=== PATIENT | female | born 1985 | race Caucasian/White ===

== ENCOUNTER 2019-02-24 09:33 | Emergency (ER) | payer SELFPAY ==
[2019-02-24] MEDS ORDERED: NA CHLORIDE 0.9% 1,000 ML ONE (10:26)
[2019-02-24] MEDS ORDERED: ONDANSETRON 4 MG/2 ML VIAL ONE ×2 (10:26→12:26)
[2019-02-24 10:47] LABS: Basophils % 0.2 % (0-1.3); Hematocrit 44.9 % (36.0-45.0); Lymphocytes % 12.7 % (15.3-44.8); RBC Red Blood Cell Count 5.03 M/uL (3.86-4.86)
[2019-02-24 11:01] LABS: Albumin 4.1 g/dL (3.4-5.0); Bilirubin Direct 0.2 mg/dL (0-0.2); Bilirubin Total 1.1 mg/dL (0.2-1.0); Potassium 3.5 mmol/L (3.5-5.1); Protein, Total 7.5 g/dL (6.4-8.2)
[2019-02-24] MEDS ORDERED: METOCLOPRAMIDE 10 MG/2mL INJ ONE (12:00)
[2019-02-24 12:52] LABS: Urine Blood NEGATIVE (NEG); Urine Glucose NEGATIVE (NEG); Urine Protein 2+ (NEG); Urine pH 8.5 (5.0-7.0)
--- NOTE | 2019-02-24 13:07 | RAD REPORT ---
EXAM DESCRIPTION: CTAbdomen Pelvis W Contrast - 02/24/2019 12:57 pm CLINICAL HISTORY: Abdominal pain. ABD PAIN COMPARISON: CT ABD PELVIS W CONTRAST dated 12/21/2014 TECHNIQUE: Biphasic CT imaging of the abdomen and pelvis was performed with 100 ml non-ionic IV cont rast. All CT scans are performed using dose optimization technique as appropriate and may include automated exposure control or mA/KV adjustment according to patient size. FINDINGS: The lung bases are clear. The liver, spleen, pancreas, adrenal glands and kidneys are within normal limits. No bowel obstruction, free air, free fluid or abscess. The appendix is normal. No evidence of signi ficant lymphadenopathy. No suspicious bony findings. IMPRESSION: No acute intra-abdominal or pelvic finding.
--- NOTE | 2019-02-24 13:19 | ER ---
Nurse's Notes [facility] Name: Monserrat Carrasco Age: 33 yrs Sex: Female : 1985 Arrival Date: 02/24/2019 Time: 09:34 Bed 13 Private MD: None, None Diagnosis: Vomiting Presentation: 02/24 09:59 Presenting complaint: Patient states: chills and vomiting since Saturday, also has small iw amount of diarrhea, denies fever, c/o pain all over from vomiting. Transition of care: patient was not received from another setting of care. Onset of symptoms was February 22, 2019. Risk Assessment: Do you want to hurt yourself or someone else? Patient reports no desire to harm self or others. Initial Sepsis Screen: Does the patient meet any 2 criteria? No. Patient's initial sepsis screen is negative. Does the patient have a suspected source of infection? No. Patient's initial sepsis screen is negative. Care prior to arrival: None. 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 - Social history:: Smoking status: Patient uses tobacco products, smokes one-half pack cigarettes per day, Patient uses alcohol, occasionally. - Ebola Screening: : Patient negative for fever greater than or equal to 101.5 degrees Fahrenheit, and additional compatible Ebola Virus Disease symptoms Patient denies exposure to infectious person Patient denies travel to an Ebola-affected area in the 21 days before illness onset No symptoms or risks identified at this time. Screenin:00 Abuse screen: Denies threats or abuse. Nutritional screening: vomiting 2-3 days. rb1 Tuberculosis screening: No symptoms or risk factors identified. Fall Risk None identified. Assessment: 10:00 General: Appears uncomfortable, Behavior is anxious, restless, Reports chills for 2-3 rb1 days, feeling ill for 2-3 days, fatigue for 2-3 days. Pain: Complains of pain in abdomen Pain radiates to back Pain currently is 8 out of 10 on a pain scale. Neuro: Level of Consciousness is awake, alert, obeys commands, Oriented to person, place, time, situation. Cardiovascular: Capillary refill < 3 seconds is brisk in bilateral fingers. Respiratory: Airway is patent Respiratory effort is even, unlabored, Respiratory pattern is regular, symmetrical. GI: Abdomen is flat, Reports nausea, vomiting, since Saturday. : No signs and/or symptoms were reported regarding the genitourinary system. Derm: Skin is pink, warm \T\ dry. 11:00 Reassessment: Patient appears in no apparent distress at this time. No changes from rb1 previously documented assessment. 11:33 Reassessment: Pt. continues to feel nauseous. Provider notified. rb1 12:00 Reassessment: Patient appears in no apparent distress at this time. Patient and/or rb1 family updated on plan of care and expected duration. Pain level reassessed. Patient is alert, oriented x 3, equal unlabored respirations, skin warm/dry/pink. Nausea has decreased some per pt. report. 13:00 Reassessment: Patient appears in no apparent distress at this time. No changes from rb1 previously documented assessment. Patient states symptoms have improved. 14:00 Reassessment: Patient appears in no apparent distress at this time. Patient and/or rb1 family updated on plan of care and expected duration. Pain level reassessed. Patient is alert, oriented x 3, equal unlabored respirations, skin warm/dry/pink. Vital Signs: 10:05 BP 125 / 81; Pulse 63; Resp 16 S; Temp 97.2(TE); Pulse Ox 100% on R/A; Weight 90.72 kg; iw Height 5 ft. 5 in. (165.10 cm); Pain 10/10; 11:12 BP 116 / 53; Pulse 68; Resp 16; Temp 97.5(TE); Pulse Ox 99% ; mh5 12:00 BP 113 / 69; Pulse 50; Resp 16; Temp 97.5(TE); Pulse Ox 100% on R/A; mh5 13:17 BP 109 / 58; Pulse 57; Resp 15; Temp 97.9(TE); Pulse Ox 100% on R/A; mh5 14:00 BP 111 / 61; Pulse 65; Resp 17; Temp 98.0(O); Pulse Ox 100% on R/A; Pain 7/10; rb1 10:05 Body Mass Index 33.28 (90.72 kg, 165.10 cm) ED Course: 09:34 Patient arrived in ED. dl4 09:35 None, None is Private Physician. dl4 09:48 Familia Dunn MD is Attending Physician. kdr 10:00 Goldie Morrow, RN is Primary Nurse. rb1 10:00 Triage completed. iw 10:00 Patient has correct armband on for positive identification. Bed in low position. Call rb1 light in reach. Side rails up X 1. Pulse ox on. NIBP on. Warm blanket given. Pillow given. 10:06 Arm band placed on. iw 10:28 Inserted saline lock: 22 gauge in right antecubital area, using aseptic technique. rb1 Blood collected. 12:58 CT Abd/Pelvis - IV Contrast Only In Process Unspecified. EDMS 14:04 No provider procedures requiring assistance completed. IV discontinued, intact, ae4 bleeding controlled, No redness/swelling at site. Pressure dressing applied. Administered Medications: 10:28 Drug: Zofran 4 mg Route: IVP; Site: right antecubital; rb1 10:40 Follow up: Response: No adverse reaction; No change in condition rb1 10:28 Drug: NS 0.9% 1000 ml Route: IV; Rate: 1 bolus; Site: right antecubital; rb1 11:47 Drug: Reglan 20 mg Route: IVP; Site: right antecubital; rb1 12:00 Follow up: Response: No adverse reaction; Nausea is decreased rb1 12:14 Drug: Zofran 4 mg Route: IVP; Site: right antecubital; rb1 12:30 Follow up: Response: No adverse reaction; Nausea is decreased rb1 Outcome: 13:18 Discharge ordered by . kdr 14:04 Discharged to home ambulatory, with significant other. ae4 14:04 Condition: stable 14:04 Discharge instructions given to patient, significant other, Instructed on discharge instructions, follow up and referral plans. Demonstrated understanding of instructions, Prescriptions given X 2. 14:04 Patient left the ED. ae4 Signatures: Dispatcher [employer] EDMS Familia Dunn MD MD kdr Tika Rios RN RN Goldie Morrow, BREONAN RN rb1 Delphine Bach Juan Ramon Miller dl4 Chilo Cordero, RN RN ae4 Corrections: (The following items were deleted from the chart) 10:11 10:05 Pulse 63bpm; Resp 16bpm; Spontaneous; Pulse Ox 100% RA; 90.72 kg; Height 5 ft. 5 iw in.; BMI: 33.2; Pain 05/14; iw
--- NOTE | 2019-02-24 13:20 | EDPHYS ---
Physician Documentation [facility] Name: Monserrat Carrasco Age: 33 yrs Sex: Female : 1985 Arrival Date: 02/24/2019 Time: 09:34 Bed 13 Private MD: None, None ED Physician Familia Dunn HPI: 02/24 10:06 This 33 yrs old Female presents to ER via Ambulatory with complaints of kdr Nausea/Vomiting. 10:06 The patient presents to the emergency department with nausea, that is mild, vomiting, kdr that is intermittent, diarrhea, that is intermittent, abdominal pain, of the abdomen diffusely, described as achy, crampy, dull, intermittent. Onset: The symptoms/episode began/occurred gradually, Saturday. Possible causes: unknown. The symptoms are aggravated by food , The symptoms are alleviated by nothing. Severity of symptoms: At their worst the symptoms were severe incapacitating in the emergency department the symptoms are unchanged. The patient has not experienced similar symptoms in the past. 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 - Social history:: Smoking status: Patient uses tobacco products, smokes one-half pack cigarettes per day, Patient uses alcohol, occasionally. - Ebola Screening: : Patient negative for fever greater than or equal to 101.5 degrees Fahrenheit, and additional compatible Ebola Virus Disease symptoms Patient denies exposure to infectious person Patient denies travel to an Ebola-affected area in the 21 days before illness onset No symptoms or risks identified at this time. ROS: 10:06 Constitutional: Negative for fever, chills, and weight loss, Eyes: Negative for injury, kdr pain, redness, and discharge, ENT: Negative for injury, pain, and discharge, Neck: Negative for injury, pain, and swelling, Cardiovascular: Negative for chest pain, palpitations, and edema, Respiratory: Negative for shortness of breath, cough, wheezing, and pleuritic chest pain, Back: Negative for injury and pain, : Negative for injury, bleeding, discharge, and swelling, MS/Extremity: Negative for injury and deformity, Skin: Negative for injury, rash, and discoloration, Neuro: Negative for headache, weakness, numbness, tingling, and seizure activity. Psych: Negative for depression, anxiety, suicide ideation, homicidal ideation, and hallucinations, Allergy/Immunology: Negative for hives, rash, and allergies, Endocrine: Negative for neck swelling, polydipsia, polyuria, polyphagia, and marked weight changes, Hematologic/Lymphatic: Negative for swollen nodes, abnormal bleeding, and unusual bruising. 10:06 Abdomen/GI: Positive for nausea and vomiting, nausea, vomiting, and diarrhea, Negative for abdominal pain, abdominal distension. Exam: 10:06 Constitutional: This is a well developed, well nourished patient who is awake, alert, kdr and in moderate distress. Head/Face: Normocephalic, atraumatic. Eyes: Pupils equal round and reactive to light, extra-ocular motions intact. Lids and lashes normal. Conjunctiva and sclera are non-icteric and not injected. Cornea within normal limits. Periorbital areas with no swelling, redness, or edema. Neck: Trachea midline, no thyromegaly or masses palpated, and no cervical lymphadenopathy. Supple, full range of motion without nuchal rigidity, or vertebral point tenderness. No Meningismus. Chest/axilla: Normal chest wall appearance and motion. Nontender with no deformity. No lesions are appreciated. Cardiovascular: Regular rate and rhythm with a normal S1 and S2. No gallops, murmurs, or rubs. Normal PMI, no JVD. No pulse deficits. Respiratory: Lungs have equal breath sounds bilaterally, clear to auscultation and percussion. No rales, rhonchi or wheezes noted. No increased work of breathing, no retractions or nasal flaring. Back: No spinal tenderness. No costovertebral tenderness. Full range of motion. Skin: Warm, dry with normal turgor. Normal color with no rashes, no lesions, and no evidence of cellulitis. MS/ Extremity: Pulses equal, no cyanosis. Neurovascular intact. Full, normal range of motion. Neuro: Awake and alert, GCS 15, oriented to person, place, time, and situation. Cranial nerves II-XII grossly intact. Motor strength 5/5 in all extremities. Sensory grossly intact. Cerebellar exam normal. Normal gait. Psych: Awake, alert, with orientation to person, place and time. Behavior, mood, and affect are within normal limits. 10:06 Abdomen/GI: Bowel sounds: active, Palpation: soft, mild abdominal tenderness, mass, is not appreciated, rebound tenderness, is not appreciated. Vital Signs: 10:05 BP 125 / 81; Pulse 63; Resp 16 S; Temp 97.2(TE); Pulse Ox 100% on R/A; Weight 90.72 kg; iw Height 5 ft. 5 in. (165.10 cm); Pain 10/10; 11:12 BP 116 / 53; Pulse 68; Resp 16; Temp 97.5(TE); Pulse Ox 99% ; mh5 12:00 BP 113 / 69; Pulse 50; Resp 16; Temp 97.5(TE); Pulse Ox 100% on R/A; mh5 13:17 BP 109 / 58; Pulse 57; Resp 15; Temp 97.9(TE); Pulse Ox 100% on R/A; mh5 14:00 BP 111 / 61; Pulse 65; Resp 17; Temp 98.0(O); Pulse Ox 100% on R/A; Pain 7/10; rb1 10:05 Body Mass Index 33.28 (90.72 kg, 165.10 cm) iw MDM: 10:06 Data reviewed: vital signs, nurses notes, lab test result(s). Counseling: I had a kdr detailed discussion with the patient and/or guardian regarding: the historical points, exam findings, and any diagnostic results supporting the discharge/admit diagnosis, lab results. 13:18 Patient medically screened. [facility] 02/24 10:05 Order name: Basic Metabolic Panel; Complete Time: : [facility] 02/24 10:05 Order name: CBC with Diff; Complete Time: : [facility] 02/24 10:05 Order name: Creatinine for Radiology; Complete Time: : [facility] 02/24 10:05 Order name: Hepatic Function; Complete Time: : [facility] 02/24 10:05 Order name: Lipase; Complete Time: : [facility] 02/24 12:30 Order name: Urine Dipstick--Ancillary (enter results); Complete Time: 13:04 em1 02/24 10:05 Order name: IV Saline Lock; Complete Time: 10:37 [facility] 02/24 10:05 Order name: Labs collected and sent; Complete Time: 10:37 [facility] 02/24 11:57 Order name: CT Abd/Pelvis - IV Contrast Only; Complete Time: 13:16 [facility] 02/24 12:30 Order name: Urine --Ancillary (enter results); Complete Time: 13:04 em1 02/24 12:05 Order name: Urine Test (obtain specimen); Complete Time: 12:28 rb1 Administered Medications: 10:28 Drug: Zofran 4 mg Route: IVP; Site: right antecubital; rb1 10:40 Follow up: Response: No adverse reaction; No change in condition rb1 10:28 Drug: NS 0.9% 1000 ml Route: IV; Rate: 1 bolus; Site: right antecubital; rb1 11:47 Drug: Reglan 20 mg Route: IVP; Site: right antecubital; rb1 12:00 Follow up: Response: No adverse reaction; Nausea is decreased rb1 12:14 Drug: Zofran 4 mg Route: IVP; Site: right antecubital; rb1 12:30 Follow up: Response: No adverse reaction; Nausea is decreased rb1 Disposition: 02/24/19 13:18 Discharged to Home. Impression: Vomiting. - Condition is Stable. - Discharge Instructions: Nausea and Vomiting, Adult, [id number], Abdominal Pain, Adult, [id number]. - Prescriptions for Zofran 4 mg Oral Tablet - take 1 tablet by ORAL route every 4-6 hours As needed; 12 tablet. Pepcid 20 mg Oral Tablet - take 1 tablet by ORAL route once daily; 20 tablet. - Medication Reconciliation Form, Thank You Letter form. - Follow up: Private Physician; When: 2 - 3 days; Reason: If symptoms return, Further diagnostic work-up, Recheck today's complaints, Continuance of care, Re-evaluation by your physician. - Problem is new. - Symptoms have improved. Signatures: Dispatcher [employer] EDMS Familia Dunn MD MD kdr Tika Rios RN RN iw Goldie Morrow RN RN rb1 Chilo Cordero RN RN ae4 Corrections: (The following items were deleted from the chart) 14:04 13:18 02/24/2019 13:18 Discharged to Home. Impression: Vomiting. Condition is Stable. ae4 Forms are Medication Reconciliation Form, Thank You Letter, Antibiotic Education, Prescription Opioid Use. Follow up: Private Physician; When: 2 - 3 days; Reason: If symptoms return, Further diagnostic work-up, Recheck today's complaints, Continuance of care, Re-evaluation by your physician. Problem is new. Symptoms have improved. kdr
== END 2019-02-24 14:04 | disposition home or self-care (01) ==
LOC: ER 09:33
DX: R11.10 Vomiting, unspecified (principal); F17.210 Nicotine dependence, cigarettes, uncomplicated
CPT/HCPCS: 36415; 74177; 80048; 80076; 81003; 81025; 83690; 85025; 96374; 96375; 99284; J2405; J2765; J7030

== ENCOUNTER 2020-02-22 09:23 | Emergency (ER) | payer OTHER, SELFPAY ==
[2020-02-22] MEDS ORDERED: NA CHLORIDE 0.9% 1,000 ML ONE ×2 (10:00→12:33)
[2020-02-22 10:24] LABS: Absolute Lymphocytes (CBC) 1.7 K/uL (0.7-4.9); Basophils % 0.4 % (0-1.3); Hematocrit 45.1 % (36.0-45.0); Lymphocytes % 8.7 % (15.3-44.8); MPV 9.5 fL (7.6-11.3); RBC Red Blood Cell Count 5.06 M/uL (3.86-4.86)
[2020-02-22 10:38] LABS: Potassium 4.5 mmol/L (3.5-5.1)
[2020-02-22] MEDS ORDERED: PROMETHAZINE INJ 25 MG/ML AMP ONE (10:47)
[2020-02-22] MEDS ORDERED: FENTANYL CITR 100 MCG/2 ML ONE (10:48)
--- NOTE | 2020-02-22 11:49 | RAD REPORT ---
EXAM DESCRIPTION: CT - Abdomen Pelvis W Contrast - 02/22/2020 11:25 am CLINICAL HISTORY: Abdominal pain COMPARISON: 2018 TECHNIQUE: Computed axial tomography of the abdomen pelvis was obtained. 100 cc Isovue-300 was admin istered intravenously. Oral contrast was not requested which limits evaluation of bowel. All CT scans are performed using dose optimization technique as appropriate and may include automated exposure control or mA/KV adjustment according to patient size. FINDINGS: Mild fatty liver Spleen, pancreas, adrenal and kidneys appear unremarkable. There is no evidence of diverticulitis. Normal appendix 25 millimeter left ovarian cyst without significant free fluid IMPRESSION: 25 millimeter left ovarian cyst without significant free fluid
[2020-02-22 12:08] LABS: Urine Blood NEGATIVE (NEG); Urine Glucose NEGATIVE (NEG); Urine Protein NEGATIVE (NEG); Urine pH 8.5 (5.0-7.0)
[2020-02-22 12:10] LABS: Blood Morphology Comment NOT SEEN (NOT SEEN); Platelet Estimate ADEQ
--- OUTSIDE RECORDS SUMMARY | 2020-02-22 12:35 | XMS REPORT | Continuity of Care Document ---
:1985 Author Organization [facility] t Address [address] [place] [address] Care Team Providers Name Role Phone Talia Attending Clinician Radiology Attending Clinician Unavailable Problems This patient has no known problems. Allergies, Adverse Reactions, Alerts This patient has no known allergies or adverse reactions. Medications This patient has no known medications. Procedures This patient has no known procedures. Encounters Start End Encounter Admission Attending Care Care Encounter Source Date/Time Date/Time Type Type Clinicians Facility Department ID 2020-01-12 2020-01-12 Letter ANJEL Melgar [id number] 00:00:00 00:00:00 (Out) Dinora BARBA [id number] [facility] [id number] 2019-12-23 2019-12-23 [facility] Radiology [facility] [id number] 13:00:00 23:59:00 Encounter Mikayla [id number] [place] [id number] [place] [id number] Results This patient has no known results.
--- OUTSIDE RECORDS SUMMARY | 2020-02-22 12:35 | XMS REPORT | Summary of Care ---
:1985 Author Organization [facility] Address [address] [place] [id number] Care Team Providers Name Role Phone Melgar Primary Care Provider Reason for Visit Radiology Services (Routine) Status Reason Specialty Diagnoses / Referred By Referred To Procedures Contact Contact New Request Diagnostic Diagnoses Lower abdominal pain, unspecified Melgar, Dinora Radiology Procedures US PELVIS LIMITED US PELVIS COMPLETE NON-OB [address] [place] [address] Encounter Details Date Type Department Care Team Description 12/23/2019 Hospital Encounter [facility] Radiolog y Arrived [facility] [address] [place] [address] [address] [facility] [place] [address] [place] [address] Allergies Not on Filedocumented as of this encounter (statuses as of 12/24/2019) Medications Not on filedocumented as of this encounter (statuses as of 12/24/2019) Active Problems Not on filedocumented as of this encounter (statuses as of 12/24/2019) Social History Tobacco Use Types Packs/Day Years Used Date Never Assessed Sex Assigned at Date Recorded Not on file Job Start Date Occupation Industry Not on file Not on file Not on file Travel History Travel Start Travel End No recent travel history available. COVID-19 Exposure Response Date Recorded In the last month, have you been in contact with No / Unsure 12/16/2019 9:26 AM CDT someone who was confirmed or suspected to have Coronavirus / COVID-19? documented as of this encounter Last Filed Vital Signs Not on filedocumented in this encounter Plan of Treatment Health Maintenance Due Date Last Done Comments VARICELLA VACCINES (1 of 2 - 10/14/1988 2-dose childhood series) DTaP,Tdap,and Td Vaccines (1 - 10/14/1998 Tdap) PAP SMEAR 10/14/2008 INFLUENZA VACCINE (Season Ended) 2020 PNEUMOCOCCAL 0-64 YEARS COMBINED Aged Out No longer eligible based on SERIES patient's age to complete this topic documented as of this encounter Procedures Procedure Name Priority Date/Time Associated Comments Diagnosis US PELVIS LIMITED Routine 12/23/2019 1:55 Lower abdominal Res ults for this PM CDT pain, unspecified procedure are in the results section. [facility] PATIENT FINANCIAL Routine 12/23/2019 1:22 POLICY PM CDT NO SHOW OR MISSED Routine 12/23/2019 1:22 APPOINTMENT POLICY PM CDT ACKNOWLEDGEMENT NOTICE OF PRIVACY Routine 12/23/2019 1:22 PRACTICES PM CDT CONSENT/REFUSAL FOR Routine 12/23/2019 1:22 DIAGNOSIS AND TREATMENT PM CDT ASSIGNMENT OF BENEFITS Routine 12/23/2019 1:21 PM CDT documented in this encounter Results US PELVIS LIMITED (12/23/2019 1:55 PM CDT) Specimen Impressions Performed At PACS/VR/DOSE Superficial 9 mm left lower quadrant abdominal wall hy poechoic lesion with some internal complexity is technically indeterminate. Differential considerations include focal area of fat necrosis versus a rounded morphologically abnormal lymph node. Att ention on follow-up versus consideration of biopsy. Consider repeat imaging if there is incr ease in size or worsening pain. ILeandro MD., have review ed this study and agree with the above report. Narrative Performed At EXAM: US PELVIS LIMITED PACS/VR/DOSE HISTORY: Lower abdominal pain, unspecifi ed External orders COMPARISON: None. FINDINGS: Targeted ultrasound of the left lower abdominal quadra nt superficial soft tissues was performed. A round hypoechoic heterogenous structure is seen in t he superficial soft tissues which measures 9 x 8 x 9 mm and demonstrates mild posterior shadowing along its borders and no flow on color Doppler. This lesion is somewhat heterogeneous centrally. No definite tract is seen extending to t he skin surface. Procedure Note [facility], Radiant Results Inft User - 2019 3:02 PM CDT EXAM: US PELVIS LIMITED HISTORY: Lower abdominal pain, unspecifi ed External orders COMPARISON: None. FINDINGS: Targeted ultrasound of the left lower ab dominal quadrant superficial soft tissues was performed. A round hypoechoic heterogenous structur e is seen in the superficial soft tissues which measures 9 x 8 x 9 mm and demonstrates mild posterior shadowing along its borders and no flow on color Doppler. This lesion is somewhat heterogeneous centrally. No definite tract is seen extending to t he skin surface. IMPRESSION Superficial 9 mm left lower quadrant abd ominal wall hypoechoic lesion with some internal complexity is technically indeterminate. Differential considerations include focal area of fat necrosis versus a rounded morphologically abnormal lymph node. Att ention on follow-up versus consideration of biopsy. Consider repeat imaging if there is incr ease in size or worsening pain. ILeandro MD., have reviewe d this study and agree with the above report. Performing Organization Address City/State/Zipcode Phone Number PACS/VR/DOSE documented in this encounter Visit Diagnoses Diagnosis Lower abdominal pain, unspecified documented in this encounter
--- OUTSIDE RECORDS SUMMARY | 2020-02-22 12:35 | XMS REPORT | Summary of Care ---
:1985 Author Organization [facility] Address [address] [place] [id number] Care Team Providers Name Role Phone Talia Primary Care Provider Encounter Details Date Type Department Care Team Description 01/12/2020 Letter (Out) ACCESS [facility] Dinora Melgar [address] [facility] [address] [place] [address] [place], [place] [phone] Allergies Not on Filedocumented as of this encounter (statuses as of 01/19/2020) Medications Not on filedocumented as of this encounter (statuses as of 01/19/2020) Active Problems Not on filedocumented as of this encounter (statuses as of 01/19/2020) Social History Tobacco Use Types Packs/Day Years [...] DTaP,Tdap,and Td Vaccines (1 - 10/14/1998 Tdap) Depression Screening 1999 PAP SMEAR 10/14/2008 INFLUENZA VACCINE (Season Ended) 2020 PNEUMOCOCCAL 0-64 YEARS COMBINED Aged Out No longer eligible based on SERIES patient's age to complete this topic documented as of this encounter Results Not on filedocumented in this encounter
--- NOTE | 2020-02-22 15:06 | ER ---
Nurse's Notes [facility] Name: Monserrat Carrasco Age: 34 yrs Sex: Female : 1985 Arrival Date: 02/22/2020 Time: 09:24 Bed 15 Private MD: Diagnosis: Nausea and vomiting;Diarrhea, unspecified;Volume depletion Presentation: 02/21 09:33 Chief complaint: Patient states: N/V/D and abd pain that started this morning, denies em fever, also reports right arm numbness that started on the way over to ER, also reports a cough that started when she throws up. Coronavirus screen: Patient reports a cough. Ebola Screen: Patient negative for fever greater than or equal to 101.5 degrees Fahrenheit, and additional compatible Ebola Virus Disease symptoms Patient denies exposure to infectious person. Patient denies travel to an Ebola-affected area in the 21 days before illness onset. No symptoms or risks identified at this time. Initial Sepsis Screen: Does the patient meet any 2 criteria? RR > 20 per min. No. Patient's initial sepsis screen is negative. Does the patient have a suspected source of infection? No. Patient's initial sepsis screen is negative. Risk Assessment: Do you want to hurt yourself or someone else? Patient reports no desire to harm self or others. Onset of symptoms was February 22, 2020. 09:33 Method Of Arrival: Ambulatory em 09:33 Acuity: JAEL 3 em Triage Assessment: 11:17 GI: Reports. 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 - Social history:: Smoking status: Patient reports the use of cigarette tobacco products, smokes one pack cigarettes per day. Screenin:00 Abuse screen: Denies threats or abuse. Denies injuries from another. Nutritional ca1 screening: No deficits noted. Tuberculosis screening: No symptoms or risk factors identified. Fall Risk IV access (20 points). Assessment: 10:00 General: Appears in no apparent distress. comfortable, Behavior is calm, cooperative, ca1 appropriate for age. Pain: Complains of pain in abdomen Quality of pain is described as crampy, Pain began this morning. Pain: Is intermittent. Pain:. Neuro: Level of Consciousness is awake, alert, obeys commands, Oriented to person, place, time, situation. Cardiovascular: Heart tones S1 S2 present Capillary refill < 3 seconds Patient's skin is warm and dry. Respiratory: Airway is patent Respiratory effort is even, unlabored, Respiratory pattern is regular, symmetrical, Breath sounds are clear bilaterally. GI: Abdomen is round non-distended, Bowel sounds present X 4 quads. Abd is soft X 4 quads Reports diarrhea, nausea, vomiting. : No signs and/or symptoms were reported regarding the genitourinary system. EENT: No signs and/or symptoms were reported regarding the EENT system. Derm: Skin is intact, is healthy with good turgor, Skin is pink, warm \T\ dry. Musculoskeletal: Circulation, motion, and sensation intact. Capillary refill < 3 seconds. 11:00 Reassessment: Patient appears in no apparent distress at this time. Patient and/or ca1 family updated on plan of care and expected duration. Pain level reassessed. Patient is alert, oriented x 3, equal unlabored respirations, skin warm/dry/pink. 12:00 Reassessment: Patient appears in no apparent distress at this time. Patient and/or ca1 family updated on plan of care and expected duration. Pain level reassessed. Patient is alert, oriented x 3, equal unlabored respirations, skin warm/dry/pink. 13:09 Reassessment: Patient appears in no apparent distress at this time. Patient and/or ca1 family updated on plan of care and expected duration. Pain level reassessed. Patient is alert, oriented x 3, equal unlabored respirations, skin warm/dry/pink. 13:58 Reassessment: Patient appears in no apparent distress at this time. Patient and/or ca1 family updated on plan of care and expected duration. Pain level reassessed. Patient is alert, oriented x 3, equal unlabored respirations, skin warm/dry/pink. 14:55 Reassessment: Patient appears in no apparent distress at this time. Patient and/or ca1 family updated on plan of care and expected duration. Pain level reassessed. Patient is alert, oriented x 3, equal unlabored respirations, skin warm/dry/pink. Vital Signs: 09:33 BP 164 / 107; Pulse 69; Resp 24; Temp 97.7(O); Pulse Ox 98% on R/A; Weight 95.25 kg em (R); Height 5 ft. 5 in. (165.10 cm); Pain 7/10; 10:30 BP 99 / 52; Pulse 52; Resp 20 S; Pulse Ox 100% on R/A; ca1 11:00 BP 106 / 60; Pulse 54; Resp 20 S; Pulse Ox 100% on R/A; ca1 12:00 BP 112 / 71; Pulse 51; Resp 19 S; Pulse Ox 100% on R/A; ca1 13:09 BP 120 / 71; Pulse 52; Resp 17 S; Pulse Ox 100% on R/A; ca1 13:58 BP 126 / 69; Pulse 52; Resp 17 S; Pulse Ox 100% on R/A; ca1 14:55 BP 119 / 70; Pulse 52; Resp 17 S; Pulse Ox 100% on R/A; ca1 09:33 Body Mass Index 34.95 (95.25 kg, 165.10 cm) em ED Course: 09:24 Patient arrived in ED. ag5 09:37 Elif Irving FNP-C is PHCP. snw 09:37 Roberth Solares MD is Attending Physician. snw 09:37 Triage completed. em 09:37 Arm band placed on. em 09:47 Vikas Owen, BREONNA is Primary Nurse. bp 10:00 Patient has correct armband on for positive identification. Placed in gown. Bed in low ca1 position. Call light in reach. Side rails up X2. Pulse ox on. NIBP on. Warm blanket given. 10:42 Primary Nurse role handed off by Vikas Owen, BREONNA ca1 10:42 Tia Maharaj, BREONNA is Primary Nurse. ca1 11:24 CT Abd/Pelvis - IV Contrast Only In Process Unspecified. EDMS 15:41 No provider procedures requiring assistance completed. IV discontinued, intact, ca1 bleeding controlled, No redness/swelling at site. Pressure dressing applied. Administered Medications: 10:00 Drug: NS 0.9% 1000 ml Route: IV; Rate: 1 bolus; Site: right antecubital; ca1 10:40 Drug: Phenergan 6.25 mg Route: IVP; Site: right antecubital; ca1 11:30 Follow up: Response: No adverse reaction; Nausea is decreased ca1 12:19 Drug: NS 0.9% 1000 ml Route: IV; Rate: 1 bolus; Site: right antecubital; 13:00 Follow up: Response: No adverse reaction; IV Status: Completed infusion ca1 13:35 Follow up: Response: No adverse reaction; IV Status: Completed infusion ca1 12:28 Not Given (Patient Refused): fentaNYL (PF) 50 mcg IVP once; RASS on ADMIN: Combtv4, ca1 Very Agttd3, Agttd2, Rstlss1, AlertClm0, Drwsy-1, Lt Sdtn-2, Mod Sdtn-3, Dp Sdtn-4, UnArsble-5 Outcome: 15:06 Discharge ordered by . snw 15:41 Discharged to home ambulatory. ca1 15:41 Condition: stable 15:41 Discharge instructions given to patient, Instructed on discharge instructions, follow up and referral plans. medication usage, Demonstrated understanding of instructions, follow-up care, medications, Prescriptions given X 1. 15:41 Patient left the ED. ca1 Addendum: 02/25/2020 13:30 Addendum: COVID-19 Result: Negative result given to RN to notify pt. Contacted by: Irineo Lemus RN. Notified pt of negative COVID 19 swab results. Pt advised that even with a negative test result they should remain in isolation until symptom free for 3 days without medication. Pt also advised to return to the ED for worsening symptoms. Signatures: Dispatcher [employer] Arianna Cohen RN RN dm5 Elif Irving, BEHAVIORAL PSYCHOLOGIST-C BEHAVIORAL PSYCHOLOGIST-Csnw Zane Thomas RN RN em Smirch, Shelby, RN RN ss Peltier, Brian, RN RN bp Acob, Cheryl, RN RN ca1 Fantasma, Shayne ag5 Corrections: (The following items were deleted from the chart) 02/21 11:17 10:00 GI: Abdomen is round non-distended, Bowel sounds present X 4 quads. Abd is soft X ca1 4 quads ca1
--- NOTE | 2020-02-22 15:07 | EDPHYS ---
Physician Documentation [facility] Name: Monserrat Carrasco Age: 34 yrs Sex: Female : 1985 Arrival Date: 02/22/2020 Time: 09:24 Bed 15 Private MD: ED Physician Roberth Solares HPI: 02/21 11:06 This 34 yrs old Female presents to ER via Ambulatory with complaints of snw Vomiting, Abdominal Pain, Numbness Of Arm. 11:06 The patient presents to the emergency department with nausea, vomiting, diarrhea. snw Onset: The symptoms/episode began/occurred suddenly, today, and became persistent. Possible causes: unknown. The symptoms are aggravated by nothing. Severity of symptoms: At their worst the symptoms were severe in the emergency department the symptoms are unchanged. The patient has not experienced similar symptoms in the past. The patient has not recently seen a physician. denies ill contacts. 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 - Social history:: Smoking status: Patient reports the use of cigarette tobacco products, smokes one pack cigarettes per day. ROS: 11:08 Eyes: Negative for injury, pain, redness, and discharge, ENT: Negative for injury, snw pain, and discharge, Neck: Negative for injury, pain, and swelling, Cardiovascular: Negative for chest pain, palpitations, and edema, Respiratory: Negative for shortness of breath, cough, wheezing, and pleuritic chest pain. 11:08 Back: Negative for injury and pain, : Negative for injury, bleeding, discharge, and swelling, MS/Extremity: Negative for injury and deformity, Skin: Negative for injury, rash, and discoloration. 11:08 Constitutional: Positive for body aches, fatigue, malaise, poor PO intake. 11:08 Abdomen/GI: Positive for abdominal pain, nausea, vomiting, and diarrhea. 11:08 Neuro: Positive for "hands are going numb". Exam: 11:03 Head/Face: Normocephalic, atraumatic. Eyes: Pupils equal round and reactive to light, snw extra-ocular motions intact. Lids and lashes normal. Conjunctiva and sclera are non-icteric and not injected. Cornea within normal limits. Periorbital areas with no swelling, redness, or edema. ENT: Nares patent. No nasal discharge, no septal abnormalities noted. Tympanic membranes are normal and external auditory canals are clear. Oropharynx with no redness, swelling, or masses, exudates, or evidence of obstruction, uvula midline. Mucous membranes moist. Neck: Trachea midline, no thyromegaly or masses palpated, and no cervical lymphadenopathy. Supple, full range of motion without nuchal rigidity, or vertebral point tenderness. No Meningismus. Chest/axilla: Normal chest wall appearance and motion. Nontender with no deformity. No lesions are appreciated. Cardiovascular: Regular rate and rhythm with a normal S1 and S2. No gallops, murmurs, or rubs. Normal PMI, no JVD. No pulse deficits. 11:03 Back: No spinal tenderness. No costovertebral tenderness. Full range of motion. MS/ Extremity: Pulses equal, no cyanosis. Neurovascular intact. Full, normal range of motion. Neuro: Awake and alert, GCS 15, oriented to person, place, time, and situation. Cranial nerves II-XII grossly intact. Motor strength 5/5 in all extremities. Sensory grossly intact. Cerebellar exam normal. Normal gait. 11:03 Constitutional: The patient appears awake, anxious, obese, restless, uncomfortable, hyperventilating 11:03 Respiratory: the patient does not display signs of respiratory distress, Respirations: shallow respirations, tachypnea, Breath sounds: are clear throughout. 11:03 Abdomen/GI: Inspection: obese Bowel sounds: normal, Palpation: moderate abdominal tenderness, in all quadrants. 11:03 Skin: Appearance: flushing, noted on the face. 11:03 Psych: Behavior/mood is anxious, Affect is tearful. Oriented to person, place, time. Vital Signs: 09:33 BP 164 / 107; Pulse 69; Resp 24; Temp 97.7(O); Pulse Ox 98% on R/A; Weight 95.25 kg em (R); Height 5 ft. 5 in. (165.10 cm); Pain 7/10; 10:30 BP 99 / 52; Pulse 52; Resp 20 S; Pulse Ox 100% on R/A; ca1 11:00 BP 106 / 60; Pulse 54; Resp 20 S; Pulse Ox 100% on R/A; ca1 12:00 BP 112 / 71; Pulse 51; Resp 19 S; Pulse Ox 100% on R/A; ca1 13:09 BP 120 / 71; Pulse 52; Resp 17 S; Pulse Ox 100% on R/A; ca1 13:58 BP 126 / 69; Pulse 52; Resp 17 S; Pulse Ox 100% on R/A; ca1 14:55 BP 119 / 70; Pulse 52; Resp 17 S; Pulse Ox 100% on R/A; ca1 09:33 Body Mass Index 34.95 (95.25 kg, 165.10 cm) em MDM: 09:46 Patient medically screened. snw 15:07 Data reviewed: vital signs, nurses notes. Data interpreted: Pulse oximetry: on room air snw is 100 %. Interpretation: normal. Counseling: I had a detailed discussion with the patient and/or guardian regarding: the historical points, exam findings, and any diagnostic results supporting the discharge/admit diagnosis, lab results, radiology results, the need for outpatient follow up, to return to the emergency department if symptoms worsen or persist or if there are any questions or concerns that arise at home. Response to treatment: the patient's symptoms have markedly improved after treatment. 02/21 09:45 Order name: CBC with Diff; Complete Time: 12:12 snw 02/21 09:45 Order name: Chem 7; Complete Time: 10:40 snw 02/21 09:45 Order name: Lipase; Complete Time: 10:40 snw 02/21 09:45 Order name: Flu; Complete Time: 13:24 snw 02/21 09:45 Order name: COVID-19 snw 02/21 10:29 Order name: Test, Serum; Complete Time: 11:09 snw 02/21 10:29 Order name: CT Abd/Pelvis - IV Contrast Only; Complete Time: 12:12 snw 02/21 11:46 Order name: Urine Dipstick--Ancillary (enter results); Complete Time: 12:12 bd 02/21 11:46 Order name: Urine --Ancillary (enter results); Complete Time: 12:12 bd 02/21 12:10 Order name: Manual Differential; Complete Time: 12:12 EDMS 02/21 09:45 Order name: Droplet/Contact Precautions; Complete Time: 09:56 snw Administered Medications: 10:00 Drug: NS 0.9% 1000 ml Route: IV; Rate: 1 bolus; Site: right antecubital; ca1 10:40 Drug: Phenergan 6.25 mg Route: IVP; Site: right antecubital; ca1 11:30 Follow up: Response: No adverse reaction; Nausea is decreased ca1 12:19 Drug: NS 0.9% 1000 ml Route: IV; Rate: 1 bolus; Site: right antecubital; ss 13:00 Follow up: Response: No adverse reaction; IV Status: Completed infusion ca1 13:35 Follow up: Response: No adverse reaction; IV Status: Completed infusion ca1 12:28 Not Given (Patient Refused): fentaNYL (PF) 50 mcg IVP once; RASS on ADMIN: Combtv4, ca1 Very Agttd3, Agttd2, Rstlss1, AlertClm0, Drwsy-1, Lt Sdtn-2, Mod Sdtn-3, Dp Sdtn-4, UnArsble-5 Disposition: 15:47 Co-signature as Attending Physician, Roberth Solares MD. rn Disposition: 02/22/20 15:06 Discharged to Home. Impression: Nausea and vomiting, Diarrhea, unspecified, Volume depletion. - Condition is Stable. - Discharge Instructions: Food Choices to Help Relieve Diarrhea, Adult, Diarrhea, Adult, Nausea and Vomiting, Adult, Rehydration, Adult. - Prescriptions for promethazine 25 mg Oral Tablet - take 1 tablet by ORAL route every 6 hours As needed; 20 tablet. - Work release form, Medication Reconciliation Form, Thank You Letter, Antibiotic Education, Prescription Opioid Use form. - Follow up: Emergency Department; When: As needed; Reason: Worsening of condition. Follow up: Private Physician; When: 2 - 3 days; Reason: Recheck today's complaints, Continuance of care, Re-evaluation by your physician. Signatures: Dispatcher [employer] Elif Soares FNP-C MANAGER PRIMARY CARE-Zane Aguilar, RN RN Roberth Elaine MD MD rn Smirch, Shelby, RN RN ss Acob, Tia RN RN ca1 Corrections: (The following items were deleted from the chart) 15:41 15:06 02/22/2020 15:06 Discharged to Home. Impression: Nausea and vomiting; Diarrhea, ca1 unspecified; Volume depletion. Condition is Stable. Forms are Medication Reconciliation Form, Thank You Letter, Antibiotic Education, Prescription Opioid Use. Follow up: Emergency Department; When: As needed; Reason: Worsening of condition. Follow up: Private Physician; When: 2 - 3 days; Reason: Recheck today's complaints, Continuance of care, Re-evaluation by your physician. snw
[2020-02-23 01:51] VITALS: TEMP 97.7
[2020-02-23 01:52] VITALS: O2SAT 100
[2020-02-23 01:56] VITALS: BP 112/71
== END 2020-02-22 15:41 | disposition home or self-care (01) ==
LOC: ER 09:23
DX: E86.9 Volume depletion, unspecified (principal); R19.7 Diarrhea, unspecified; Z20.828 Contact with and (suspected) exposure to other viral communicable diseases
CPT/HCPCS: 96361; 85025; 80048; 36415; 84703; 81025; 81003; 83690; 87804 ×2; 74177; 96374; 99284; U0001; J2550; J3010; J7030 ×2

== ENCOUNTER 2022-08-06 03:43 | Inpatient (IN) | payer OTHER, SELFPAY ==
--- OUTSIDE RECORDS SUMMARY | 2022-08-06 03:46 | XMS REPORT | Continuity of Care Document ---
:1985 Author Organization [facility] t Address [address] [place] [address] Care Team Providers Name Role Phone KALI MELGAR Primary Care Physician Unavailable CARMELO GLOVER Attending Clinician Unavailable Doctor Unassigned, [place] Attending Clinician Unavailable Matthew Gorman MD S Attending Clinician Kali Melgar Attending Clinician RADIOLOGY Attending Clinician Unavailable Radiology Attending Clinician Unavailable KALI MELGAR Admitting Clinician Unavailable Problems This patient has no known problems. Allergies, Adverse Reactions, Alerts Allergy Allergy Status Severity Reaction(s) Onset Inactive Treating Comm ents Source Name Type Date Date Clinician NO KNOWN Drug Active Univers ALLERGIE Class ity of S [facility] Social History Social Habit Start Date Stop Date Quantity Comments Source Exposure to Unable to assess Univers ity of SARS-CoV-2 [facility] (event) [place] Sex Assigned At [birth year] Universit y of 00:00:00 00:00:00 [facility] Smoking Status Start Date Stop Date Source Unknown if ever smoked [facility] Medications This patient has no known medications. Procedures Procedure Date / Time Performing Clinician Source Performed CONSENT/REFUSAL FOR 2020-12-12 18:39:47 [facility] DIAGNOSIS AND TREATMENT [facility] US PELVIS LIMITED 2019-12-23 18:55:02 Requisition, Paper [facility] PATIENT FINANCIAL 2019-12-23 18:22:51 [facility] [place] NO SHOW OR MISSED 2019-12-23 18:22:36 Doctor Unassmary, [facility] APPOINTMENT POLICY [place] [facility] ACKNOWLEDGEMENT NOTICE OF PRIVACY 2019-12-23 18:22:19 Doctor Axel, [facility] PRACTICES [facility] CONSENT/REFUSAL FOR 2019-12-23 18:22:08 Doctor Juan Reyna [facility] DIAGNOSIS AND TREATMENT [facility] ASSIGNMENT OF BENEFITS 2019-12-23 18:21:54 [facility] Encounters Start End Encounter Admission Attending Care Care Encounter Source Date/Time Date/Time Type Type Clinicians Facility Department ID 2021-06-03 Emergency [facility] [id number] Univers 13:47:40 ity of [facility] 2020-12-12 2020-12-12 Outpatient R ADALBERTO [facility] [id number] Univers 14:00:00 14:00:00 CARMELO gilmorey o f [facility] 2020-12-12 2020-12-12 Orders Doctor HOBBS [id number] Univers 00:00:00 00:00:00 Only Unassigned, FREDA [id number] ity of [place] [facility] [id number] [place] [id number] [facility] 009 Branch 2020-08-03 2020-08-03 Emergency [facility] [id number] Univers 09:32:00 09:34:00 Matthew Degroot [id number] ity [facility] [id number] [facility] [id number] [facility] 084 Branch 2020-01-12 2020-01-12 ANJEL Wing [id number] Univers 00:00:00 00:00:00 (Out) Kali BARBA [id number] it y of [facility] [id number] [place] [id number] [facility] 019 Branch 2020-01-12 2020-01-12 ANJEL Wing [id number] 00:00:00 00:00:00 (Out) Kali BARBA [id number] [facility] [id number] 2019-12-23 2019-12-23 Outpatient R RADIOLOGY [facility] [id number] Univers 13:24:16 23:59:00 ity of [facility] Branch 2019-12-23 2019-12-23 [facility] Radiology [facility] [id number] 13:00:00 23:59:00 Encounter [place] [id number] [place] [id number] [place] [id number] 2019-12-23 2019-12-23 [facility] Radiology [facility] [id number] Univers 13:00:00 23:59:00 Encounter [place] [id number] ity [facility] [id number] [place] [id number] [facility] 806 Branch Results Test Test Test Results Result Source Description Time Comments Comments US PELVIS 2019-12 Superficial 9 mm left lower University of LIMITED -20 quadrant abdominal wall T [facility] 19:46:5 hypoechoic lesion withsome Branch 1 internal complexity is technically indeterminate. Differentialconsiderations include focal area of fat necrosis versus a roundedmorphologically abnormal lymph node. Attention on follow-up versusconsideration of biopsy. Consider repeat imaging if there is increase in size or worsening pain. I, Leandro ?MD Joce., have reviewed this study and agree with theabove report.EXAM: US PELVIS LIMITED HISTORY: Lower abdominal pain, unspecified External orders COMPARISON: None. FINDINGS: Targeted ultrasound of the left lower abdominal quadrant superficial softtissues was performed. A round hypoechoic heterogenous structure is seen in the superficial softtissues which measures 9 x 8 x 9 mm and demonstrates mild posteriorshadowing along its borders and no flow on color Doppler. This lesion issomewhat heterogeneous centrally. No definite tract is seen extending to the skin surface. [facility], Radiant Results Inft User - 12/23/2019 3:02 PM CDTEXAM: US PELVIS LIMITEDHISTORY: Lower abdominal pain, unspecified External ordersCOMPARISON: None.FINDINGS:Targeted ultrasound of the left lower abdominal quadrant superficial softtissues was performed.A round hypoechoic heterogenous structure is seen in the superficial softtissues which measures 9 x 8 x 9 mm and demonstrates mild posteriorshadowing along its borders and no flow on color Doppler. This lesion issomewhat heterogeneous centrally.No definite tract is seen extending to the skin surface.IMPRESSIONSuperficial 9 mm left lower quadrant abdominal wall hypoechoic lesion withsome internal complexity is technically indeterminate. Differentialconsiderations include focal area of fat necrosis versus a roundedmorphologically abnormal lymph node. Attention on follow-up versusconsideration of biopsy.Consider repeat imaging if there is increase in size or worsening pain.ILeandro MD., have reviewed this study and agree with theabove report.
[2022-08-06] MEDS ORDERED: MORPHINE 4 MG/ML SYR ONE ×3 (03:58→17:29)
[2022-08-06] MEDS ORDERED: LIDOCAINE 1% W/EPI 1:100,000 30 ML VIAL ONE (03:58)
[2022-08-06] MEDS ORDERED: ONDANSETRON 4 MG/2 ML VIAL ONE (03:58)
[2022-08-06] MEDS ORDERED: TDAP (DIPHTH,PERTUSS(ACELL),TET VAC) 0.5 ML VIAL IMVAC ONE (03:59)
[2022-08-06] MEDS ORDERED: NA CHLORIDE 0.9% 1,000 ML ONE ×2 (03:59→20:34)
[2022-08-06 04:11] LABS: Absolute Lymphocytes (CBC) 1.2 K/uL (0.7-4.9); Hematocrit 44.5 % (36.0-45.0); Lymphocytes % 6.2 % (15.3-44.8); MCV 88.9 fL (80-100); MPV 7.5 fL (7.6-11.3)
[2022-08-06 04:29] LABS: Albumin 3.5 g/dL (3.4-5.0); Bilirubin Direct 0.1 mg/dL (0-0.2); Bilirubin Total 0.7 mg/dL (0.2-1.0); Potassium 3.7 mmol/L (3.5-5.1)
[2022-08-06] MEDS ORDERED: NA CHLORIDE 0.9% 100 ML IV ONE (06:05)
[2022-08-06] MEDS ORDERED: CEFAZOLIN SODIUM 1 GM/VIAL ONE (06:05)
[2022-08-06] MEDS ORDERED: SILVER NITRATE 1 APPL TOP ONE (06:58)
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
[2022-08-06] MEDS: MORPHINE 4 MG/ML SYR IV PRN ×2 (09:00→17:23)
[2022-08-06] MEDS: CEFTRIAXONE 1,000 MG in NA CHLORIDE 0.9% 50 ML IVPB SCH ×2 (09:40→20:43)
[2022-08-06] MEDS: NA CHLORIDE 0.9% 1,000 ML IV SCH ×2 (09:40→20:43)
[2022-08-06] MEDS ORDERED: CEFTRIAXONE 1000 MG/VIAL ONE ×2 (09:53→20:33)
[2022-08-06] MEDS ORDERED: ACETAMINOPHEN 325 MG TABLET PO PRN (09:53)
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
[2022-08-06] MEDS ORDERED: HYDROCODONE/APAP 7.5/325 MG TAB ONE ×2 (12:57→20:33)
[2022-08-06] MEDS: HYDROCODONE/APAP 7.5/325 MG TAB PO PRN ×2 (13:15→20:43)
--- NOTE | 2022-08-06 14:24 | RAD REPORT ---
EXAM DESCRIPTION: Shoulder Right 2 View - 08/06/2022 4:03 am CLINICAL HISTORY: The patient is 36 years old and is Female; PAIN Shoulder Right 2 View TECHNIQUE: Two or more views of the right shoulder. COMPARISON: No relevant prior studies available. FINDINGS: BONES/JOINTS: Widening of the acromioclavicular joint to 1.3 cm is present. Widening of the coracoclavicular distance approximately 1.4 cm is noted. No acute fracture. No dislocation. SOFT TISSUES: Unremarkable. IMPRESSION: Findings suggest at least a grade II acromioclavicular separation. Electronically signed by: Ayde Culver MD 08/06/2022 4:54 AM PENS AND PENCILS DIPPER Due to temporary technical issues with the PACS/Fluency reporting system, reports are being signed by the in house radiologists without review as a courtesy to insure prompt reporting. The interpreting radiologist is fully responsible for the content of the report.
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
[2022-08-06 16:57] LABS: SARS-CoV-2 Antigen Rapid Res Negative (Negative)
[2022-08-06] MEDS ORDERED: NA CHLORIDE 0.9% 50 ML IV ONE (20:34)
[2022-08-06] MEDS ORDERED: DOCUSATE NA 100 MG CAP PO ONE (20:39)
[2022-08-06] MEDS: DOCUSATE NA 100 MG CAP PO SCH (20:43)
[2022-08-07] MEDS: MORPHINE 4 MG/ML SYR IV PRN ×4 (01:44→23:09)
[2022-08-07] MEDS ORDERED: MORPHINE 4 MG/ML SYR ONE ×3 (01:50→17:58)
[2022-08-07 02:49] LABS: Absolute Lymphocytes (CBC) 1.9 K/uL (0.7-4.9); Hematocrit 38.7 % (36.0-45.0); Lymphocytes % 20.2 % (15.3-44.8); MCV 88.1 fL (80-100); MPV 7.7 fL (7.6-11.3)
[2022-08-07] MEDS ORDERED: HYDROCODONE/APAP 7.5/325 MG TAB ONE ×2 (06:34→20:43)
[2022-08-07] MEDS: NA CHLORIDE 0.9% 1,000 ML IV SCH ×4 (06:44→22:57)
[2022-08-07] MEDS ORDERED: NA CHLORIDE 0.9% 1,000 ML ONE (06:48)
[2022-08-07] MEDS: HYDROCODONE/APAP 7.5/325 MG TAB PO PRN ×2 (06:59→20:43)
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
[2022-08-07] MEDS: CEFTRIAXONE 1,000 MG in NA CHLORIDE 0.9% 50 ML IVPB SCH ×2 (09:00→22:57)
[2022-08-07] MEDS ORDERED: NA CHLORIDE 0.9% 50 ML IV ONE (09:53)
[2022-08-07] MEDS ORDERED: CEFTRIAXONE 1000 MG/VIAL ONE (09:53)
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
[2022-08-07] MEDS: DOCUSATE NA 100 MG CAP PO SCH (21:00)
[2022-08-07 22:04] VITALS: BMI 31.1
[2022-08-08] MEDS: NA CHLORIDE 0.9% 1,000 ML IV SCH ×3 (01:40→16:36)
[2022-08-08] MEDS: HYDROCODONE/APAP 7.5/325 MG TAB PO PRN ×3 (01:59→20:26)
[2022-08-08] MEDS: MORPHINE 4 MG/ML SYR IV PRN ×5 (05:05→22:51)
[2022-08-08] MEDS: ONDANSETRON 4 MG/2 ML VIAL IV PRN ×2 (05:10→20:37)
[2022-08-08] MEDS: DOCUSATE NA 100 MG CAP PO SCH ×2 (08:45→20:26)
[2022-08-08] MEDS: CEFTRIAXONE 1,000 MG in NA CHLORIDE 0.9% 50 ML IVPB SCH ×2 (08:46→20:25)
[2022-08-08] MEDS: BACITRACIN OINTMENT 14 GM TUBE TOP SCH ×2 (10:21→17:23)
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
[2022-08-09] MEDS: NA CHLORIDE 0.9% 1,000 ML IV SCH ×2 (01:10→10:30)
[2022-08-09] MEDS: BACITRACIN OINTMENT 14 GM TUBE TOP SCH ×2 (01:13→09:00)
[2022-08-09] MEDS: HYDROCODONE/APAP 7.5/325 MG TAB PO PRN (02:56)
[2022-08-09] MEDS: MORPHINE 4 MG/ML SYR IV PRN ×2 (05:59→10:39)
[2022-08-09] MEDS: DOCUSATE NA 100 MG CAP PO SCH (08:02)
[2022-08-09] MEDS: CEFTRIAXONE 1,000 MG in NA CHLORIDE 0.9% 50 ML IVPB SCH (08:03)
[2022-08-09 10:17] VITALS: O2SAT 99
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
[2022-08-09 12:21] VITALS: BP 116/72; TEMP 97.9
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
== END 2022-08-09 13:31 | disposition home or self-care (01) | DRG 580 ==
LOC: ER 03:43 → ERHOLD 08:21 → 2ND 08-07 20:03
PROVIDERS: ADMIT Surgery; ATTEND Surgery
PROC: 0KQ03ZZ Repair Head Muscle, Percutaneous Approach (ICD-10-PCS; principal; 2022-08-06)
PROC: 0HQ2XZZ Repair Right Ear Skin, External Approach (ICD-10-PCS; 2022-08-06)
DX: S01.81XA Laceration without foreign body of other part of head, initial encounter (principal); S22.42XA Multiple fractures of ribs, left side, initial encounter for closed fracture; S27.0XXA Traumatic pneumothorax, initial encounter; S01.311A Laceration without foreign body of right ear, initial encounter; S43.101A Unspecified dislocation of right acromioclavicular joint, initial encounter; V43.52XA Car driver injured in collision with other type car in traffic accident, initial encounter; Y92.9 Unspecified place or not applicable; Z20.822 Contact with and (suspected) exposure to COVID-19
CPT/HCPCS: 36415; 70450; 71045; 71260; 72125; 74177; 80048; 80076; 82565; 83690; 84702; 85025; 86850; 86900; 86901; 87811; 90471; 94010; 96374; 96375; 97116; 97161; 97165; 99283; J0690; J2405; J7030; Q9967

== ENCOUNTER 2022-08-13 13:56 | Emergency (ER) | payer SELFPAY ==
--- OUTSIDE RECORDS SUMMARY | 2022-08-13 13:59 | XMS REPORT | Continuity of Care Document ---
:1985 Author Organization [facility] t Address [address] [place] [address] Care Team Providers Name Role Phone KALI MELGAR Primary Care Physician Unavailable CARMELO GLOVER Attending Clinician Unavailable Doctor Unassigned, [place] Attending Clinician Unavailable Matthew Gorman MD S Attending Clinician Kali Melgar Attending Clinician RADIOLOGY Attending Clinician Unavailable Radiology Attending Clinician Unavailable KALI MELGAR Admitting Clinician Unavailable Problems This patient has no known problems. Allergies, Adverse Reactions, Alerts Allergy Allergy Status Severity Reaction(s) Onset Inactive Treating Comm ents Source Name Type Date Date Clinician NO KNOWN Drug Active Univers ALLERGIE Class [facility] Social History Social Habit Start Date Stop Date Quantity Comments Source Exposure to Unable to assess Univers ity of SARS-CoV-2 [facility] (event) [place] Sex Assigned At [birth year] [facility]:00[facility]00 [facility] Smoking Status Start Date Stop Date Source Unknown if ever smoked [facility] Medications This patient has no known medications. Procedures Procedure Date / Time Performing Clinician Source Performed CONSENT/REFUSAL FOR 2020-12-12 18:39:47 Doctor Unassigned, [facility] DIAGNOSIS AND TREATMENT [place] [facility] US PELVIS LIMITED 2019-12-23 18:55:02 Requisition, Paper [facility] PATIENT FINANCIAL 2019-12-23 18:22:51 [facility] POLIC[facility] NO SHOW OR MISSED 2019-12-23 18:22:36 Doctor Unassmary, [facility] APPOINTMENT POLICY [place] [facility] ACKNOWLEDGEMENT NOTICE OF PRIVACY 2019-12-23 18:22:19 Doctor Axel, [facility] PRACTICES [facility] CONSENT/REFUSAL FOR 2019-12-23 18:22:08 Doctor Axel, Juan [facility] DIAGNOSIS AND TREATMENT [place] [place] ASSIGNMENT OF BENEFITS 2019-12-23 18:21:54 Doctor Unassigned, [facility] [place] Encounters Start End Encounter Admission Attending Care Care Encounter Source Date/Time Date/Time Type Type Clinicians Facility Department ID 2021-06-[address] [facility] [id number] Univers 13:47:40 [facility] 2020-12-12 2020-12-12 Outpatient R ADALBERTO [facility] [id number] Univers 14:00:00 14:00:00 CARMELO botello o [facility] 2020-12-12 2020-12-12 Orders Doctor HOBBS [id number] Univers 00:00:00 00:00:00 Only Unassigned, FREDA [id number] ity of [place] [facility] [id number] [facility] [id number] [facility] 009 Branch 2020-08-03 2020-08-03 Emergency [facility] [id number] Univers 09:32:00 09:34:00 Matthew Davis [place] [id number] ity of [place] [id number] [facility] [id number] [facility] 084 Branch 2020-01-12 2020-01-12 ANJEL Wing [id number] 00:00:00 00:00:00 (Out) Kali BARBA [id number] [facility] [id number] 2020-01-12 2020-01-12 ANJEL Wing [id number] Univers 00:00:00 00:00:00 (Out) Kali BARBA [id number] it y of [facility] [id number] [place] [id number] [facility] 019 Branch 2019-12-23 2019-12-23 Out[address]IOLOGY [facility] [id number] Univers 13:24:16 23:59:00 ity [facility] 2019-12-23 2019-12-23 [facility] Radiology [facility] [id number] 13:00:00 23:59:00 Encounter [place] [id number] [place] [id number] [place] [id number] 2019-12-23 2019-12-23 [facility] Radiology [facility] [id number] Univers 13:00:00 23:59:00 Encounter [place] [id number] ity [facility] [id number] [place] [id number] [facility] 806 Branch Results Test Test Test Results Result Source Description Time Comments Comments US PELVIS 2019-12 Superficial 9 mm left lower University of LIMITED -20 quadrant abdominal wall T [facility] 19:46:5 hypoechoic lesion withsome Branch 1 internal [...] is seen extending to the skin surface. [facility], Radiant Results Inft User - 12/23/2019 [...]
[2022-08-13] MEDS ORDERED: KETOROLAC 30 MG/ML INJ ONE (15:17)
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
--- NOTE | 2022-08-13 15:42 | RAD REPORT ---
EXAM DESCRIPTION: RAD - Foot Left 3 View - 08/13/2022 3:23 pm CLINICAL HISTORY: PAIN COMPARISON: No comparisons FINDINGS: Transverse fracture is seen involving the proximal aspect of the fifth metatarsal. Small t o moderate posterior and plantar calcaneal spurs.
[2022-08-13 18:06] VITALS: BP 118/81; TEMP 97.8; O2SAT 99
== END 2022-08-13 16:03 | disposition home or self-care (01) ==
LOC: ER 13:56
DX: S92.352A Displaced fracture of fifth metatarsal bone, left foot, initial encounter for closed fracture (principal)
CPT/HCPCS: 96372; 99283

== ENCOUNTER 2022-11-27 19:12 | Emergency (ER) | payer OTHER ==
--- OUTSIDE RECORDS SUMMARY | 2022-11-27 19:25 | XMS REPORT | Continuity of Care Document ---
:1985 Author Organization [facility] t Address [address] [facility] [place] [address] Care Team Providers Name Role Phone KALI MELGAR Primary Care Physician Unavailable CARMELO GLOVER Attending Clinician Unavailable Doctor Unassigned, [place] Attending Clinician Unavailable Matthew Gorman MD S [...] ALLERGIE Class ity of S [facility] Social History Social Habit Start Date Stop Date Quantity Comments Source Exposure to Unable to assess Univers ity of SARS-CoV-2 [facility] (event) [place] Sex Assigned At [birth year] Universit y of 00:00:00 00:00:00 [facility] Smoking Status Start Date Stop Date Source Unknown if ever smoked [facility] Medications This patient has no known medications. Procedures Procedure Date / Time Performing Clinician Source Performed CONSENT/REFUSAL FOR 2020-12-12 18:39:47 [facility], [facility] DIAGNOSIS AND TREATMENT [facility] US PELVIS LIMITED 2019-12-23 18:55:02 Requisition, Paper [facility] PATIENT FINANCIAL 2019-12-23 18:22:51 [facility] NO SHOW OR MISSED 2019-12-23 18:22:36 Doctor Unassmary, [facility] APPOINTMENT POLICY [place] ACKNOWLEDGEMENT NOTICE OF PRIVACY 2019-12-23 18:22:19 Doctor Axel, [facility] PRACTICES [facility] CONSENT/REFUSAL FOR 2019-12-23 18:22:08 Doctor Axel, Juan [facility] DIAGNOSIS AND TREATMENT [facility] ASSIGNMENT OF BENEFITS 2019-12-23 18:21:54 Doctor Unassigned, [facility] Encounters Start End Encounter Admission Attending Care Care Encounter Source Date/Time Date/Time Type Type Clinicians Facility Department ID 2021-06-03 Emergency [facility] [id number] Univers 13:47:40 ity of [facility] 2020-12-12 2020-12-12 Outpatient R ADALBERTO [facility] [id number] Univers 14:00:00 14:00:00 CARMELO botello o f [facility] 2020-12-12 2020-12-12 Orders Doctor HOBBS [id number] Univers 00:00:00 00:00:00 Only Unassigned, FREDA [id number] ity of [place] [facility] [id number] [facility] [id number] [facility] 009 Branch 2020-08-03 2020-08-03 Emergency [facility] [id number] Univers 09:32:00 09:34:00 Matthew Davis [place] [id number] ity of [place] [id number] [facility] [id number] [facility] 084 Branch 2020-01-12 2020-01-12 ANJEL Wing [id number] 00:00:00 00:00:00 (Out) Kali BARBA [id number] [facility] [id number] 2020-01-12 2020-01-12 ANJEL Wing [id number] Univers 00:00:00 00:00:00 (Out) Kali BARBA [id number] it y of [facility] [id number] [place] [id number] [facility] 019 Branch 2019-12-23 2019-12-23 Outpatient R RADIOLOGY [facility] [id number] Univers 13:24:16 23:59:00 ity [facility] 2019-12-23 2019-12-23 [facility] Radiology [facility] [id number] 13:00:00 23:59:00 Encounter [place] [id number] [place] [id number] [place] [id number] 2019-12-23 2019-12-23 [facility] Radiology [facility] [id number] Univers 13:00:00 23:59:00 Encounter [place] [id number] ity [facility] [id number] [place] [id number] [facility] 806 Branch Results Test Test Test Results Result Source Description Time Comments Comments US PELVIS 2019-12 Superficial 9 mm left lower University of LIMITED -20 quadrant abdominal wall T [facility] 19:46:5 hypoechoic lesion withsome Branch 1 [...] is seen extending to the skin surface. [facility], Radiant Results Inft User - 12/23/2019 3:02 [...]
[2022-11-27] MEDS ORDERED: ACETAMINOPHEN 500 MG TAB ONE (20:28)
--- NOTE | 2022-11-27 21:17 | RAD REPORT ---
EXAM DESCRIPTION: RAD - Foot Right 3 View - 11/27/2022 9:04 pm CLINICAL HISTORY: PAIN COMPARISON: <Comparisons> FINDINGS: Healing transverse fracture at the base of the fifth metatarsal. Calcaneal spurs.
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
[2022-11-28 00:55] VITALS: TEMP 98.3
[2022-11-28 01:00] VITALS: BP 119/66; O2SAT 100
== END 2022-11-27 23:18 | disposition home or self-care (01) ==
LOC: ER 19:12
DX: M54.2 Cervicalgia (principal); M79.671 Pain in right foot
CPT/HCPCS: 70450; 72125; 99284

== ENCOUNTER 2022-12-11 19:27 | Emergency (ER) | payer OTHER ==
--- OUTSIDE RECORDS SUMMARY | 2022-12-11 19:30 | XMS REPORT | Continuity of Care Document ---
:1985 Author Organization [facility] t Address [address] [place] [address] [place] [address] Care Team Providers Name Role Phone KALI MELGAR Primary Care Physician Unavailable CARMELO GLOVER Attending Clinician Unavailable Doctor Unassigned, [place] Attending Clinician Unavailable Matthew Gorman MD Attending Clinician Kali Melgar Attending Clinician RADIOLOGY Attending Clinician Unavailable Radiology Attending Clinician Unavailable KALI MELGAR Admitting Clinician Unavailable Problems This patient has no known problems. Allergies, Adverse Reactions, Alerts Allergy Allergy Status Severity Reaction(s) Onset Inactive Treating Comm ents Source Name Type Date Date Clinician NO KNOWN Drug Active Univers ALLERGIE Class ity of S [facility] Social History Social Habit Start Date Stop Date Quantity Comments Source Exposure to Unable to assess Univers ity of SARS-CoV-2 [facility] (event) [place] Sex Assigned At [birth year] Universit y of 00:00:00 00:00:00 [facility] Smoking Status Start Date Stop Date Source Unknown if ever smoked [facility] y [facility] Medications This patient has no known medications. Procedures Procedure Date / Time Performing Clinician Source Performed CONSENT/REFUSAL FOR 2020-12-12 18:39:47 Doctor Un[facility], [facility] DIAGNOSIS AND TREATMENT [place] [facility] US PELVIS LIMITED 2019-12-23 18:55:02 Requisition, Paper [facility] PATIENT FINANCIAL 2019-12-23 18:22:51 [facility] [place] [facility] NO SHOW OR MISSED 2019-12-23 18:22:36 Doctor Unassigned, [facility] APPOINTMENT POLICY [place] [facility] ACKNOWLEDGEMENT NOTICE OF PRIVACY 2019-12-23 18:22:19 Doctor Unassmary, Univers [facility] PRACTICES [place] [facility] CONSENT/REFUSAL FOR 2019-12-23 18:22:08 Doctor Unassmary, Juan [facility] DIAGNOSIS AND TREATMENT [place] [facility] ASSIGNMENT OF BENEFITS 2019-12-23 18:21:54 Doctor [facility], [facility] [place] [facility] Encounters Start End Encounter Admission Attending Care Care Encounter Source Date/Time Date/Time Type Type Clinicians Facility Department ID 2021-06-03 Emergency [facility] [id number] Univers 13:47:40 ity of [facility] 2022-11-29 2022-11-29 Outpatient [facility] [id number] [place] 13:51:30 13:51:30 0427 [place] 2020-12-12 2020-12-12 Outpatient R ADALBERTO [facility] [id number] Univers 14:00:00 14:00:00 CARMELO botello o f [facility] 2020-12-12 2020-12-12 Orders Doctor HOBBS [id number] Univers 00:00:00 00:00:00 Only UnassignedFREDA [id number] ity of [place] [facility] [id number] [place] [id number] [facility] 009 Branch 2020-08-03 2020-08-03 Emergency [facility] [id number] Univers 09:32:00 09:34:00 Matthew [place] [id number] ity of [place] [id number] [facility] [id number] [facility] 084 Branch 2020-01-12 2020-01-12 ANJEL Wing [id number] 00:00:00 00:00:00 (Out) Kali BARBA [id number] [facility] [id number] [facility] 2020-01-12 2020-01-12 Andressa Melgar ANJEL [id number] Univers 00:00:00 00:00:00 (Out) Kali BARBA [id number] it of [facility] [id number] [facility] [id number] [facility] 019 Branch 2019-12-23 2019-12-23 Outpatient R RADIOLOGY [facility] [id number] Univers 13:24:16 23:59:00 ity of [facility] 2019-12-23 2019-12-23 [facility] Radiology [facility] [id number] 13:00:00 23:59:00 Encounter [place] [id number] [place] [id number] [place] [id number] 2019-12-23 2019-12-[address] [facility] Radiology [facility] [id number] Univers 13:00:00 23:59:00 Encounter [place] [id number] ity [facility] [id number] [facility] [id number] [facility] 806 Branch Results Test Test Test Results Result Source Description Time Comments Comments US PELVIS 2019-12 Superficial 9 mm left lower University of LIMITED -20 quadrant abdominal wall T [facility] 19:46:5 hypoechoic lesion withsome Branch 1 internal [...] is seen extending to the skin surface. [facility], Radiant Results Inft - 12/23/2019 3:02 PM CDTEXAM: US PELVIS [...] there is increase in size or worsening pain.Leandro Bhagat MD., have reviewed this study and agree with theabove report.
[2022-12-11] MEDS ORDERED: KETOROLAC 30 MG/ML INJ ONE (19:50)
[2022-12-11] MEDS ORDERED: ACETAMINOPHEN 325 MG TABLET ONE (19:50)
--- NOTE | 2022-12-11 20:20 | RAD REPORT ---
EXAM DESCRIPTION: RAD - Humerus Left - 12/11/2022 8:10 pm CLINICAL HISTORY: Left arm pain FINDINGS: No fracture is seen . No bony abnormality noted
--- NOTE | 2022-12-11 20:20 | RAD REPORT ---
EXAM DESCRIPTION: RAD - Clavicle Left - 12/11/2022 8:10 pm CLINICAL HISTORY: Shoulder pain FINDINGS: No fracture or dislocation is seen . Mild osteoarthritis AC joint mainly consisting of small osteophytes
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
[2022-12-11 21:32] VITALS: BP 118/73; TEMP 98.9; O2SAT 95
== END 2022-12-11 21:13 | disposition home or self-care (01) ==
LOC: ER 19:27
DX: M25.512 Pain in left shoulder (principal); F17.210 Nicotine dependence, cigarettes, uncomplicated
CPT/HCPCS: 96374; 99284

== ENCOUNTER 2023-04-06 11:03 | Emergency (ER) | payer OTHER ==
--- OUTSIDE RECORDS SUMMARY | 2023-04-06 11:06 | XMS REPORT | Continuity of Care Document ---
:1985 Author Organization [facility] t Address [address] [place] [address] Care Team Providers Name Role Phone KALI MELGAR Primary Care Physician Unavailable Doctor Unassigned, [place] Attending Clinician Unavailable CARMELO GLOVER Attending Clinician Unavailable Matthew Gorman MD Attending Clinician Kali Melgar Attending Clinician RADIOLOGY Attending Clinician Unavailable Radiology Attending Clinician Unavailable KALI MELGAR Admitting Clinician Unavailable Problems This patient has no known problems. Allergies, Adverse Reactions, Alerts Allergy Allergy Status Severity Reaction(s) Onset Inactive Treating Comm ents Source Name Type Date Date Clinician NO KNOWN Drug Active Univers ALLERGIE Class ity of S [facility] Social History Social Habit Start Date Stop Date Quantity Comments Source Exposure to Unable to assess Univers ity of SARS-CoV-2 [facility] (event) Branch Sex Assigned At [birth year] Universit y of 00:00:00 00:00:00 [facility] Smoking Status Start Date Stop Date Source Tobacco smoking consumption [facility] unknown Branch Medications This patient has no known medications. Procedures Procedure Date / Time Performing Clinician Source Performed REFERRAL- REQUEST/RESPONSE 2022-12-20 05:01:00 Doctor Unamoiraigned , [facility] CONSENT/REFUSAL FOR 2020-12-12 18:39:47 Doctor Unassigned, [facility] DIAGNOSIS AND TREATMENT [facility] [place] US PELVIS LIMITED 2019-12-23 18:55:02 Requisition, Paper [facility] PATIENT FINANCIAL 2019-12-23 18:22:51 [facility] NO SHOW OR MISSED 2019-12-23 18:22:36 Doctor Unassigned, [facility] APPOINTMENT POLICY [facility] h ACKNOWLEDGEMENT NOTICE OF PRIVACY 2019-12-23 18:22:19 Doctor Unassigned, [facility] PRACTICES [facility] CONSENT/REFUSAL FOR 2019-12-23 18:22:08 Doctor [facility]assigned, [facility] DIAGNOSIS AND TREATMENT [facility] ASSIGNMENT OF BENEFITS 2019-12-23 18:21:54 [facility] Encounters Start End Encounter Admission Attending Care Care Encounter Source Date/Time Date/Time Type Type Clinicians Facility Department ID 2021-06-[address] [facility] [id number] Univers 13:47:40 ity of [facility] 2023-02-08 2023-02-08 Outpatient [facility] [id number] [place] 09:21:12 09:21:12 0707 [facility] 2022-12-20 2022-12-20 Outpatient [facility] [id number] [place] 13:12:03 13:12:03 0518 [facility] 2022-12-20 2022-12-20 Orders Doctor HOBBS [id number] Univers 00:00:00 00:00:00 Only Unassigned, FREDA [id number] ity of [facility] [id number] [place] [id number] [address] 2022-11-29 2022-11-29 Outpatient [facility] [id number] [place] 13:51:30 13:51:30 0427 [facility] 2020-12-12 2020-12-12 Outpatient Alba GLOVER [facility] [id number] Univers 14:00:00 14:00:00 BARRETTNDMichelle ity o f [facility] 2020-12-12 2020-12-12 Orders Doctor ANJEL [id number] Univers 00:00:00 00:00:00 Only Unassigned, FREDA [id number] ity of [facility] [id number] [place] as [id number] [facility] 009 Branch 2020-08-03 2020-08-03 Emergency Sherif [facility] [id number] Univers 09:32:00 09:34:00 Matthew Davis [place] [id number] ity of [place] [id number] [facility] [place] [facility] [id number] [facility] 084 Branch 2020-01-12 2020-01-12 Letter ANJEL Melgar [id number] Univers 00:00:00 00:00:00 (Out) Kali MIRY [id number] it y of [facility] [id number] [place] [id number] [facility] 019 Branch 2020-01-12 2020-01-12 ANJEL Wing [id number] 00:00:00 00:00:00 (Out) Kali FERDA [id number]68 [id number] [facility] 2019-12-23 2019-12-23 Outpatient R RADIOLOGY [facility] [id number] Univers 13:24:16 23:59:00 ity of [facility] 2019-12-23 2019-12-23 [facility] Radiology [facility] [id number] Univers 13:00:00 23:59:00 Encounter [place] [id number] ity of [place] [id number] [facility] [id number] [facility] 806 [place] 2019-12-23 2019-12-23 [facility] Radiology [facility] [id number] 13:00:00 23:59:00 Encounter [place] [id number] [place] [id number] [place] [id number] Results Test Test Test Results Result Source Description Time Comments Comments US PELVIS 2019-12 Superficial 9 mm left lower University of LIMITED -20 quadrant abdominal wall [facility] 19:46:5 hypoechoic lesion withsome Branch 1 internal complexity is technically indeterminate. Differentialconsiderations include focal area of fat necrosis versus a roundedmorphologically abnormal lymph node. Attention on follow-up versusconsideration of biopsy. Consider repeat imaging if there is increase in size or worsening pain. Leandro Bhagat MD., have reviewed this study and [...] is seen extending to the skin surface. Pamb, Radiant Results Inft User - 12/23/2019 3:02 [...]
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
[2023-04-06] MEDS ORDERED: dexAMETHasone 10 MG/ML VIAL ONE (11:38)
[2023-04-06] MEDS ORDERED: KETOROLAC 30 MG/ML INJ ONE (11:39)
[2023-04-06 11:56] VITALS: BP 140/93; TEMP 98; O2SAT 98
== END 2023-04-06 11:50 | disposition home or self-care (01) ==
LOC: ER 11:03
DX: M54.50 Low back pain, unspecified (principal); F17.210 Nicotine dependence, cigarettes, uncomplicated
CPT/HCPCS: 96372; 99284; J1100

== ENCOUNTER 2024-04-03 16:22 | Emergency (ER) | payer OTHER ==
--- OUTSIDE RECORDS SUMMARY | 2024-04-03 16:25 | XMS REPORT | Continuity of Care Document ---
Author Name Unknown Address [address] [place] [address] [facility] Address [address] [place] [address] Care Team Providers Care Food Vendor Name Role Phone KALI MELGAR Primary Care Physician Unavailab TIFFANY Carodzo Attending Clinician Unavailable RADHA LUDWIG Attending Clinician UnavailSAVANAH Tovar Attending Clinician Unavailable Doctor Unassigned, [place] Attending Clinician U CARMELO Muhammad Attending Clinician Unavailab reese Gorman MD, Matthew Davis Attending Clinician Kali Melgar Attending Clinician RADIOLOGY Attending Clinician Unavailable Radiology Attending Clinician Unavailable KALI MELGAR Admitting Clinician Unavailable Payers Payer Name Policy Type Policy Number Effective Date Expirati on Date Source Allergies, Adverse Reactions, Alerts Allergy Name Allergy Type Status Severity Reaction(s) Onset Date Inactive Date Treating Clinician Comments Source NO KNOWN ALLERGIE S Drug Class Active [facility] Social History Social Habit Start Date Stop Date Quantity Comments Source Exposure to SARS-CoV-2 (event) Unable to assess [facility] Sex Assigned At 1985 00:00:00 1985 00:00:00 [facility] Smoking Status Start Date Stop Date Source Tobacco smoking consumption unknown [facility] Procedures Procedure Date / Time Performed Performing Clinician Source REFERRAL- REQUEST/RESPONSE 2022-12-20 05:01:00 D sánchezor Unassigned, [place] [facility] CONSENT/REFUSAL FOR DIAGNOSIS AND TREATMENT 2020-12-12 18:39:47 Doctor Unassigned, [place] [facility] US PELVIS LIMITED 2019-12-23 18:55:02 Requisition, Pap er [facility] PATIENT FINANCIAL POLICY 2019-12-23 18:22:51 Doctor Unassigned, [place] [facility] NO SHOW OR MISSED APPOINTMENT POLICY ACKNOWLEDGEMENT 2019-12-23 18:22:36 Doctor Unassigned, [place] [facility] NOTICE OF PRIVACY PRACTICES 2019-12-23 18:22:19 Doctor Unassigned, [place] [facility] CONSENT/REFUSAL FOR DIAGNOSIS AND TREATMENT 2019-12-23 18:22:08 Doctor Unassigned, [place] [facility] ASSIGNMENT OF BENEFITS 2019-12-23 18:21:54 Docto r Unassigned, [place] [facility] Encounters Start Date/Time End Date/Time Encounter Type Admission Type Attending [facility] Care Department Encounter ID Source 2023-12-28 07:00:00 Inpatient INTERNAL [facility] REFERRAL TIFFANY CHAMORRO [id number] [facility] 2021-06-03 13:47:40 Emergency [facility] [id number] [facility] 2023-12-28 01:55:00 2024-04-01 08:15:00 Outpatient [facility] RADHA LUDWIG [id number] [facility] 2023-12-27 19:42:00 2023-12-28 05:56:00 Emergency ER SAVANAH SALINAS [facility] [id number] Hannah Goel [facility] 2023-06-28 16:23:55 2023-06-28 16:23:55 Outpatient [facility] [id number] Kodi Lorenzana 2023-06-20 23:55:00 2023-06-21 00:55:00 emergency [facility] [id number] 2023-06-20 23:55:00 2023-06-21 00:55:00 Emergency ER LEELEE SALINASA [facility] [id number] [facility] 2023-02-08 09:21:12 2023-02-08 09:21:12 Outpatient [facility] [id number] Kodi Lorenzana 2022-12-20 13:12:03 2022-12-20 13:12:03 Outpatient [facility] [id number] Kodi Lorenzana 2022-12-20 00:00:00 2022-12-20 00:00:00 Orders Only Doctor Unassigned, [place] [facility] 1..114 [id number] [facility] 2022-11-29 13:51:30 2022-11-29 13:51:30 Outpatient [facility] [id number] Kodi Lorenzana 2020-12-12 14:00:00 2020-12-12 14:00:00 Outpatient CARMELO KELLEY [facility] [id number] [facility] 2020-12-12 00:00:00 2020-12-12 00:00:00 Orders Only Doctor Unassigned, [place] [facility] [id number] [facility] 2020-08-03 09:32:00 2020-08-03 09:34:00 Emergency Matthew Gorman [facility] [id number] [facility] 2020-01-12 00:00:00 2020-01-12 00:00:00 Letter (Out) [facility] [id number] 2020-01-12 00:00:00 2020-01-12 00:00:00 Letter (Out) [facility] [id number] [facility] 2019-12-23 13:24:16 2019-12-23 23:59:00 Outpatient R RADIOLOGY [facility] [id number] [facility] 2019-12-23 13:00:00 2019-12-23 23:59:00 Hospital Encounter Radiology [facility] [id number] 2019-12-23 13:00:00 2019-12-23 23:59:00 Hospital Encounter Radiology [facility] [id number] [facility] Results Test Description Test Time Test Comments Results Result Comments Source US PELVIS LIMITED 2019-12 19:46:5 1 Superficial 9 mm left lower quadrant abdominal wall hypoechoic lesion withsome internal complexity is technically indeterminate. Differentialconsiderations include focal area of fat necrosis versus a roundedmorphologically abnormal lymph node. Attention on follow-up versusconsideration of biopsy. Consider repeat imaging if there is increase in size or worsening pain. I, Leandro Dick MD., have reviewed this study and agree [...] is seen extending to the skin surface. [facility], Radiant Results Inft User - 12/23/2019 3:02 [...] this study and agree with theabove report. [facility]
--- NOTE | 2024-04-03 16:33 | EDPHYS ---
Physician Documentation [facility] Name: Monserrat Carrasco Age: 38 yrs Sex: Female : 1985 Arrival Date: 04/03/2024 Time: 16:22 Bed IW4 Private MD: ED Physician Ben Stacy HPI: 04/03 21:20 This 38 yrs old Female presents to ER via Ambulatory with complaints of Rash. ms3 21:20 38-year-old female past medical history of anxiety, bipolar, depression, PTSD presents ms3 to the emergency department for rash on her chin, neck, abdomen, back. Patient states the rash has been there for 1 month. She describes her discomfort as a 10/10. She denies any alleviating or inciting factors.. Historical: - Allergies: 16:55 No Known Allergies; db - PMHx: 16:55 Anxiety; Bipolar disorder; Depression; PTSD; db - PSHx: 16:55 section; db - Immunization history:: Adult Immunizations unknown. - Infectious Disease History:: Denies. - Social history:: Smoking status: Patient reports the use of cigarette tobacco products, smokes one-half pack cigarettes per day. ROS: 21:20 Constitutional: Negative for fever, and chills. Cardiovascular: Negative for chest ms3 pain, and palpitations. Respiratory: Negative for shortness of breath, cough, wheezing, and pleuritic chest pain, Abdomen/GI: Negative for abdominal pain, nausea, vomiting, diarrhea, and constipation, 21:20 Skin: Positive for rash, Exam: 21:20 Constitutional: This is a well developed, well nourished patient who is awake, alert, ms3 and in no acute distress. Neck: Trachea midline, no cervical lymphadenopathy. Supple, full range of motion without nuchal rigidity, or vertebral point tenderness. No Meningismus. Chest/axilla: Normal chest wall appearance and motion. Nontender with no deformity. Cardiovascular: Regular rate and rhythm with a normal S1 and S2. No gallops, murmurs, or rubs. Normal PMI, no JVD. No pulse deficits. Respiratory: Lungs have equal breath sounds bilaterally, clear to auscultation and percussion. No rales, rhonchi or wheezes noted. No increased work of breathing, no retractions or nasal flaring. 21:20 Skin: Appearance: Scab/ulcerated rash on chin, 1 on back, abdomen. Lesions with surrounding erythema. No rash noted where patient cannot reach with her hands., Vital Signs: 16:53 BP 136 / 97; Pulse 90; Resp 16; Temp 97.5; Pulse Ox 98% ; Weight 90.72 kg; Height 5 ft. db 5 in. ; 16:53 Body Mass Index 33.28 (90.72 kg, 165.1 cm) db MDM: 16:33 Patient medically screened. ms3 21:20 Differential diagnosis: Cellulitis versus parasitosis versus folliculitis. Data ms3 reviewed: vital signs, nurses notes, and as a result, I will discharge patient. I considered the following discharge prescriptions or medication management in the emergency department See prescriptions. Counseling: I had a detailed discussion with the patient and/or guardian regarding the historical points, exam findings, and any diagnostic results supporting the discharge/admit diagnosis, lab results, radiology results, the need for outpatient follow up, to return to the emergency department if symptoms worsen or persist or if there are any questions or concerns that arise at home. Special discussion: I discussed with the patient/guardian in detail that at this point there is no indication for admission to the hospital. It is understood, however, that if the symptoms persist or worsen the patient needs to return immediately for re-evaluation. ED course: Discussed physical exam findings with patient. Patient to follow-up with primary care physician in 2 to 3 days. Patient understands and agrees with plan. All questions were answered. Return precautions discussed include worsening symptoms, or any other concerns. Administered Medications: No medications were administered Disposition Summary: 04/03/24 16:33 Discharge Ordered Notes: Location: Home ms3 Condition: Stable ms3 Diagnosis - Rash and other nonspecific skin eruption ms3 Followup: ms3 - With: Reginald Bertrand DO - When: 2 - 3 days - Reason: Recheck today's complaints Discharge Instructions: - Discharge Summary Sheet ms3 - Rash, Adult ms3 Forms: - Medication Reconciliation Form ms3 - Antibiotic Education ms3 - Prescription Opioid Use ms3 - Patient Portal Instructions ms3 - Leadership Thank You Letter ms3 Prescriptions: - Hydroxyzine HCl 25 mg Oral Tablet - take 1 tablet ORAL route every 6 hours As needed; 12 tablet; Refills: 0, ms3 Product Selection Permitted - Doxycycline Hyclate 100 mg Oral Tablet - take 1 tablet ORAL route every 12 hours; 20 tablet; Refills: 0, Product ms3 Selection Permitted Signatures: Ben Stacy DO DO ms3 Florecita Heard, RN RN db
--- NOTE | 2024-04-03 17:02 | ER ---
Nurse's Notes [facility] Name: Monserrat Carrasco Age: 38 yrs Sex: Female : 1985 Arrival Date: 04/03/2024 Time: 16:22 Bed IW4 Private MD: Diagnosis: Rash and other nonspecific skin eruption Presentation: 04/03 16:53 Chief complaint: Patient states: RASH ALL OVER. X 1 WEEK STATES HAS HEAD LICE. db Coronavirus screen: Client denies travel out of the [place] in the last 14 days. At this time, the client does not indicate any symptoms associated with coronavirus-19. Ebola Screen: Patient negative for fever greater than or equal to 101.5 degrees Fahrenheit, and additional compatible Ebola Virus Disease symptoms Patient denies exposure to infectious person. Patient denies travel to an Ebola-affected area in the 21 days before illness onset. No symptoms or risks identified at this time. Initial Sepsis Screen: Does the patient meet any 2 criteria? No. Patient's initial sepsis screen is negative. Does the patient have a suspected source of infection? No. Patient's initial sepsis screen is negative. Risk Assessment: Do you want to hurt yourself or someone else? Patient reports no desire to harm self or others. Onset of symptoms was April 03, 2024. 16:53 Method Of Arrival: Ambulatory db 16:53 Acuity: JAEL 5 db Triage Assessment: 16:55 General: Appears in no apparent distress. comfortable, Behavior is calm, cooperative. db Pain: Denies pain. Derm: Rash noted that is. Historical: - Allergies: 16:55 No Known Allergies; db - PMHx: 16:55 Anxiety; Bipolar disorder; Depression; PTSD; db - PSHx: 16:55 section; db - Immunization history:: Adult Immunizations unknown. - Infectious Disease History:: Denies. - Social history:: Smoking status: Patient reports the use of cigarette tobacco products, smokes one-half pack cigarettes per day. Screenin:00 [facility] ED Fall Risk Assessment (Adult) History of falling in the last 3 months, db including since admission No falls in past 3 months (0 pts) Confusion or Disorientation No (0 pts) Intoxicated or Sedated No (0 pts) Impaired Gait No (0 pts) Mobility Assist Device Used No (0 pt) Altered Elimination No (0 pt) Score/Fall Risk Level 0 - 2 = Low Risk Oriented to surroundings, Maintained a safe environment. Abuse screen: Denies threats or abuse. Denies injuries from another. Nutritional screening: No deficits noted. Tuberculosis screening: No symptoms or risk factors identified. Assessment: 17:00 Reassessment: Patient appears in no apparent distress at this time. Patient and/or db family updated on plan of care and expected duration. Pain level reassessed. Patient is alert, oriented x 3, equal unlabored respirations, skin warm/dry/pink. Vital Signs: 16:53 BP 136 / 97; Pulse 90; Resp 16; Temp 97.5; Pulse Ox 98% ; Weight 90.72 kg; Height 5 ft. db 5 in. ; 16:53 Body Mass Index 33.28 (90.72 kg, 165.1 cm) db ED Course: 16:24 Patient arrived in ED. im 16:26 Ben Stacy DO is Attending Physician. ms3 16:33 Reginald Bertrand DO is Referral Physician. ms3 16:41 Patient's name was called from ER lobby. No response. db 16:55 Triage completed. db 16:55 Patient placed. db 17:00 Patient has correct armband on for positive identification. db 17:00 Provided Education on: discharge. db 17:00 No provider procedures requiring assistance completed. Patient did not have IV access db during this emergency room visit. Administered Medications: No medications were administered Medication: 17:00 VIS not applicable for this client. db Outcome: 16:33 Discharge ordered by MD. ms3 17:00 Discharged to home ambulatory, db 17:00 Condition: stable 17:00 Discharge instructions given to patient, Instructed on discharge instructions, follow up and referral plans. Prescriptions given X 1, 17:01 Patient left the ED. db Signatures: Ben Stacy DO DO ms3 Florecita Heard RN RN db Jeannine Finnegan im Corrections: (The following items were deleted from the chart) 16:56 16:53 Pulse 90bpm; Resp 16bpm; Pulse Ox 98%; Temp 97.5F; 90.72 kg; Height 5 ft. 5 in.; db BMI: 33.2; db 17:01 17:00 Patient has correct armband on for positive identification. Side rails up X 1. db db
[2024-04-03 17:28] VITALS: BP 136/97; TEMP 97.5; O2SAT 98
== END 2024-04-03 17:01 | disposition home or self-care (01) ==
LOC: ER 16:22
DX: R21 Rash and other nonspecific skin eruption (principal); F17.210 Nicotine dependence, cigarettes, uncomplicated
CPT/HCPCS: 99283